=== PATIENT | female | born 1980 | race Two or more races ===

== ENCOUNTER 2025-02-27 07:49 | Emergency (ER) | payer OTHER ==
[~2025-02-27] VITALS: Ht 165.1 cm; Wt 84.2 kg
--- NOTE | 2025-02-27 08:48 | ED.PDOC ---
GI ASSESSMENT HPI Comments 84-year-old female with past medical history of anemia presents to the emergency department with chief complaint of abdominal pain. Patient states, she has been experiencing epigastric abdominal pain x1 day with associated symptoms of nausea vomiting and diarrhea. Patient reports, pain to be stabbing in nature that radiates to her lower back. Patient comments, to have had a gastric bypass [id number] ago; endorses symptoms are similar to when she would over eat. Patient denies fever, chills, sweats, or body aches. No other symptoms or modifying factors present at this time. Chief Complaint: Abdominal Pain Time Seen by MD: 08:34 Primary Care Provider: UNKNOWN Reviewed Notes: Nurses Notes, Medications, Allergies Allergies: Uncoded Allergies: ANESTHESIA (Adverse Reaction, Unknown, 02/27/25) Information Source: Patient Mode of Arrival: Ambulatory Timing: Days Duration: Since onset Prehospital treatment: None Quality: Sharp Vomitus: Watery Stool: Watery Severity: Moderate Recent: None Recent Hx of: None Pain Location: Epigastric Modifying Factors: Nothing Associated sign and symptoms: Nausea, Vomiting, Diarrhea, Abdominal Pain Past Medical History PAST MEDICAL HISTORY: Anemia Surgical History (Other): Gastric bypass DEFENSE ANALYST History: Denies all DEFENSE ANALYST Hx Family History Family History: Unknown Social History Smoker: Non-Smoker Alcohol: Denies ETOH Use Drugs: Denies Drug Use Lives In: Home Gastrointestinal: reports: abdominal pain, diarrhea, nausea, vomiting All Other Systems: Reviewed and Negative (as per hpi) Physical Exam General Appearance: No Apparent Distress, Normal HEENT: Normal ENT Inspection, Pharynx Normal Neck: Full Range of Motion, Non-Tender, Normal, Normal Inspection Respiratory: Chest Non-Tender, Lungs Clear, No Accessory Muscle Use, No Respiratory Distress, Normal Breath Sounds Cardiovascular: No Edema, No Murmur, No Gallop, Normal Peripheral Pulses, Regular Rate/Rhythm Breast Exam: Deferred Gastrointestinal: No Organomegaly, No Pulsatile Mass, Normal Bowel Sounds, Tenderness (epigastric) Genitalia: Deferred Pelvic: Deferred Rectal: Deferred Extremities: No calf tenderness, Normal capillary refill, Normal inspection, Normal range of motion, Non-tender, No pedal edema Musculoskeletal : Apperance: Normal Neurologic: Alert, finance associate II-XII nml as Tested, No Motor Deficits, Normal Affect, Normal Mood, No Sensory Deficits Cerebellar Function: Normal Reflexes: Normal Skin: Dry, Normal Color, Warm Lymphatic: No Adenopathy Was a procedure done? Was a procedure done?: No GI differential Dx Differential Diagnosis: Gastritis/PUD, Gastroenteritis, Electrolyte Imbalance, Food Poisoning, Bacterial, Viral X-Ray, Labs, Meds, VS Vital Signs Date Time Temp Pulse Resp B/P (MAP) Pulse Ox O2 Delivery O2 Flow Rate FiO2 02/27/25 09:34 98.0 63 16 111/56 (74) 100 98.0 02/27/25 09:34 63 16 100 Room Air 02/27/25 08:28 97.4 73 16 100/40 (60) 100 97.4 Lab Test 02/27/25 08:50 Range/Units White Blood Count 4.3 L 4.4-10.8 10^3/uL Red Blood Count 4.93 4.0-5.20 10^6/uL Hemoglobin 10.7 L 12.2-16.2 g/dL Hematocrit 34.0 L 36.0-46.0 % Mean Corpuscular Volume 68.8 L 80.0-100.0 fL Mean Corpuscular Hemoglobin 21.7 L 28.0-32.0 pg Mean Corpuscular Hemoglobin Concent 31.5 L 32.0-36.0 g/dL Red Cell Distribution Width 19.6 H 11.8-14.3 % Platelet Count 278 140-450 10^3/uL Mean Platelet Volume 7.5 6.9-10.8 fL Neutrophils (%) (Auto) 67.4 37.0-80.0 % Lymphocytes (%) (Auto) 25.8 10.0-50.0 % Monocytes (%) (Auto) 5.8 0.0-12.0 % Eosinophils (%) (Auto) 0.8 0.0-7.0 % Basophils (%) (Auto) 0.2 0.0-2.0 % Neutrophils # (Auto) 2.9 1.6-8.6 10 ^3/uL Lymphocytes # (Auto) 1.1 0.4-5.4 10 ^3/uL Monocytes # (Auto) 0.3 0-1.3 10 ^3/uL Eosinophils # (Auto) 0 0-0.8 10 ^3/uL Basophils # (Auto) 0 0-0.2 10 ^3/uL Nucleated Red Blood Cells 0.1 % Urine Color Yellow Yellow Urine Clarity Turbid H Clear Urine pH 5.5 5.0-9.0 Urine Specific [place] 1.025 1.001-1.035 Urine Protein Negative Negative Urine Ketones Negative Negative Urine Blood 2+ H Negative /uL Urine Nitrite 2+ H Negative Urine Bilirubin Negative Negative Urine Urobilinogen Normal Negative mg/dL Urine Leukocyte Esterase Negative Negative /uL Urine RBC 1 0 - 4 /hpf Urine Microscopic WBC 4 0-5 /HPF Urine Squamous Epithelial Cells Mod <5 /hpf Urine Bacteria Few H None Seen /hpf Urine Mucus Moderate None Seen Urine Glucose Normal Normal mg/dL Sodium Level 142 136-145 mmol/L Potassium Level 3.5 3.5-5.1 mmol/L Chloride Level 108 H 98-107 mmol/L Carbon Dioxide Level 27 20-31 mmol/L Anion Gap 7 5-15 Blood Urea Nitrogen 7 L 9-23 mg/dL Creatinine 0.63 0.550-1.02 mg/dL Glomerular Filtration Rate Calc 114 >90 mL/min BUN/Creatinine Ratio 11.1 10.0-20.0 Serum Glucose 88 74-106 mg/dL Calcium Level 8.7 8.7-10.4 mg/dL Total Bilirubin 0.9 0.2-1.0 mg/dL Aspartate Amino Transferase (AST) 20 13-40 U/L Alanine Aminotransferase (ALT) 26 7-40 U/L Alkaline Phosphatase 88 46-116 U/L Total Protein 6.2 5.7-8.2 g/dL Albumin 4.3 3.2-4.8 g/dL Lipase 43 12-53 U/L [place] [address] Ph: [phone] DIAGNOSTIC IMAGING Diagnostic Imaging Report : [id number] Signed PATIENT: ABY BARFIELD ACCT: [id number] UNIT: [id number] : 1980 LOC: ER ROOM / BED: / AGE / SEX: 44 / F ADM STATUS: REG ER SERVICE [id number] ORDERING PHYSICIAN: ANITRA MORFIN MD PROCEDURE(s): GBUS - GALLBLADDER REASON: ro ariel ORDER NUMBER(s): [id number], ACCESSION NUMBER(s): [id number] INDICATION: ro ariel TECHNIQUE: Multiple real-time sonographic images were obtained of the right upper quadrant. COMPARISON: None FINDINGS: The liver demonstrates heterogenous echotexture without focal mass lesions. The liver measures 15 cm. There is no intrahepatic or extrahepatic ductal dilatation. The common duct measures 0.4 mm. Trace ascites The gallbladder is without evidence of stone or sludge. The gallbladder wall measures 0.2mm and is within normal limits. The right kidney measures 10 cm. The right kidney is normal in contour, size, and shape. The echogenicity is normal. There is no hydronephrosis. The pancreas is not well visualized due to overlying bowel gas. IMPRESSION: No sonographic evidence of gallstones or acute cholecystitis. Hepatic steatosis. Trace ascites. ATED BY: DONELL ERVIN MD DICTATED DATE/TIME: 02/27/25936 SIGNED BY: DONELL ERVIN MD SIGNED DATE/TIME: 02/27/25936 CC: 44-YEAR-OLD FEMALE PRESENTS HERE WITH EPIGASTRIC PAIN WITH RADIATION TO THE BACK. I CONSIDERED POSSIBLE CHOLECYSTITIS, BILIARY COLIC, PANCREATITIS. HOWEVER ULTRASOUND OF THE GALLBLADDER IS WITHIN NORMAL LIMITS FOR THE GALLBLADDER. IT DOES HOWEVER DEMONSTRATE HEPATIC STEATOSIS WITH TRACE ASCITES. THE EXACT CAUSE OF THIS IS UNCLEAR BUT I SUSPECT LIKELY RELATED TO ALCOHOL. PATIENT STATES SHE HAS BEEN DRINKING VERY HEAVILY FOR THE LAST SEVERAL MONTHS. HER LIPASE IS WITHIN NORMAL LIMITS TODAY. ADDITIONALLY HOWEVER URINE DOES DEMONSTRATE A POSITIVE UTI WITH BLOOD AND NITRITES. PATIENT DECLINES DYSURIA. HOWEVER GIVEN THAT IT IS POSITIVE FOR NITRITES ALSO I WILL BE DISCHARGING HOME WITH ANTIBIOTICS. ADVISED TO RETURN BACK TO THE ER IF SYMPTOMS WORSEN OR PERSIST. I HAVE GIVEN HER A COPY OF HER ULTRASOUND REPORT TO TAKE TO HER PCP WHICH SHE DOES HAVE IN [place]. ADVISED HER TO STOP DRINKING. PATIENT RETURN BACK TO ER IF SYMPTOMS WORSEN OR PERSIST Time of 1ST Reevaluation: 10:34 Reevaluation 1ST: Unchanged Patient Education/Counseling: Diagnosis, Treatment Family Education/Counseling: No Family Present Departure 1 Departure Time of Disposition: 10:36 Impression: Primary Impression: Urinary tract infection Qualified Codes: N30.01 - Acute cystitis with hematuria Additional Impressions: Hepatic steatosis Ascites Qualified Codes: K70.31 - Alcoholic cirrhosis of liver with ascites Disposition: HOME / SELF CARE / HOMELESS Condition: Stable Additional Instructions: FOLLOW UP WITH THE PRIMARY CARE PHYSICIAN IN 2-3 DAYS. RETURN TO THE ED IF SYMPTOMS WORSEN OR PERSIST. I HAVE INCLUDED THE ULTRASOUND RESULTS HERE TODAY. PLEASE FOLLOW UP WITH THE PRIMARY CARE PHYSICIAN REGARDING THE RESULTS BELOW. [address] [address] Ph: [phone] DIAGNOSTIC IMAGING Diagnostic Imaging Report : [id number] Signed PATIENT: ABY BARFIELD ACCT: [id number] UNIT: [id number] : 1980 LOC: ER ROOM / BED: / AGE / SEX: 44 / F ADM STATUS: REG ER SERVICE 08 ORDERING PHYSICIAN: ANITRA MORFIN MD PROCEDURE(s): GBUS - GALLBLADDER REASON: ro ariel ORDER NUMBER(s): [id number], ACCESSION NUMBER(s): [id number] INDICATION: ro ariel TECHNIQUE: Multiple real-time sonographic images were obtained of the right upper quadrant. COMPARISON: None FINDINGS: The liver demonstrates heterogenous echotexture without focal mass lesions. The liver measures 15 cm. There is no intrahepatic or extrahepatic ductal dilatation. The common duct measures 0.4 mm. Trace ascites The gallbladder is without evidence of stone or sludge. The gallbladder wall measures 0.2mm and is within normal limits. The right kidney measures 10 cm. The right kidney is normal in contour, size, and shape. The echogenicity is normal. There is no hydronephrosis. The pancreas is not well visualized due to overlying bowel gas. IMPRESSION: No sonographic evidence of gallstones or acute cholecystitis. Hepatic steatosis. Trace ascites. ATED BY: DONELL ERVIN MD DICTATED DATE/TIME: 02/27/25936 SIGNED BY: DONELL ERVIN MD SIGNED DATE/TIME: 02/27/25936 CC: e-Prescriptions Cephalexin (KEFLEX CAPSULE) 250 Mg Cp 500 MG PO Q12HR PRN for 10 Days, #20 CAP Prov: ANITRA MORFIN MD 02/27/25 Discharged With: Self Critical Care Note Critical Care Time?: No Stability Stability form required: No Heart Score Heart Score: Heart Score Response (Comments) Value History N/A 0 EKG N/A 0 Age N/A 0 Risk Factors N/A 0 Troponin N/A 0 Total 0 I personally scribed for ANITRA MORFIN MD ([email or web address]) on 02/27/25 at 10:01. Electronically submitted by Tania Hernandez ([email or web address]). I personally scribed for ANITRA MORFIN MD ([email or web address]) on 02/27/25 at 10:29. Electronically submitted by Tania Hernandez ([email or web address]). I personally scribed for ANITRA MORFIN MD ([email or web address]) on 02/27/25 at 10:35. Electronically submitted by Tania Hernandez ([employer]). ANITRA MORFIN MD Feb 27, 2025 08:48
[2025-02-27 09:02] LABS: Basophils # (auto) 0 10 ^3/uL (0-0.2); Basophils % (auto) 0.2 % (0.0-2.0); Eosinophils # (auto) 0 10 ^3/uL (0-0.8); Monocytes # (auto) 0.3 10 ^3/uL (0-1.3); Neutrophils # (auto) 2.9 10 ^3/uL (1.6-8.6); Red Blood Cells 4.93 10^6/uL (4.0-5.20)
[2025-02-27 09:03] LABS: Eosinophils % (auto) 0.8 % (0.0-7.0); Hemoglobin 10.7 g/dL (12.2-16.2); Lymphocytes # (auto) 1.1 10 ^3/uL (0.4-5.4); Lymphocytes % (auto) 25.8 % (10.0-50.0); Mean Corpuscular Hemoglobin 21.7 pg (28.0-32.0); Mean Corpuscular Hgb Conc. 31.5 g/dL (32.0-36.0); Mean Corpuscular Volume 68.8 fL (80.0-100.0); Monocytes % (auto) 5.8 % (0.0-12.0); Neutrophils % (auto) 67.4 % (37.0-80.0); Nucleated Red Blood Cells % 0.1 %; Platelet Count (auto) 278 10^3/uL (140-450); Red Cell Distribution Width 19.6 % (11.8-14.3); White Blood Cell 4.3 10^3/uL (4.4-10.8)
[2025-02-27 09:05] LABS: Urine Bacteria FEW /hpf (None Seen); Urine Blood 2+ /uL (Negative); Urine Clarity Turbid (Clear); Urine Color Yellow (Yellow); Urine Mucus MODERATE (None Seen); Urine Protein, UAD Negative (Negative); Urine Specific Gravity 1.025 (1.001-1.035); Urine Squamous Epithelial Cell MOD /hpf (<5); Urine Urobilinogen Normal (Negative); Urine WBC 4 /HPF (0-5); Urine pH 5.5 (5.0-9.0)
[2025-02-27 09:19] LABS: Alanine Aminotransferase 26 U/L (7-40); Albumin 4.3 g/dL (3.2-4.8); Alkaline Phosphatase 88 U/L (46-116); Anion Gap 7 (5-15); Aspartate Aminotransferase 20 U/L (13-40); BUN/Creatinine Ratio 11.1 (10.0-20.0); Calcium 8.7 mg/dL (8.7-10.4); Carbon Dioxide 27 mmol/L (20-31); Glucose 88 mg/dL (74-106); Lipase 43 U/L (12-53); Potassium 3.5 mmol/L (3.5-5.1); Sodium 142 mmol/L (136-145); Total Protein 6.2 g/dL (5.7-8.2)
[2025-02-27 09:20] LABS: Bilirubin, Total 0.9 mg/dL (0.2-1.0); Blood Urea Nitrogen 7 mg/dL (9-23); Chloride 108 mmol/L (98-107)
--- NOTE | 2025-02-27 09:39 | DVH ---
INDICATION: ro ariel TECHNIQUE: Multiple real-time sonographic images were obtained of the right upper quadrant. COMPARISON: None FINDINGS: The liver demonstrates heterogenous echotexture without focal mass lesions. The liver measu res 15 cm. There is no intrahepatic or extrahepatic ductal dilatation. The common duct measures 0. 4 mm. Trace ascites The gallbladder is without evidence of stone or sludge. The gallbladder wall measures 0.2mm and is within normal limits. The right kidney measures 10 cm. The right kidney is normal in contour, size, and shape. The echog enicity is normal. There is no hydronephrosis. The pancreas is not well visualized due to overlying bowel gas. IMPRESSION: No sonographic evidence of gallstones or acute cholecystitis. Hepatic steatosis. Trace ascites.
[2025-02-27] MEDS: MAALOX PLUS or MAALOX 30 ML PO ONE (10:05)
[2025-02-27] MEDS: DONNATAL 5ml ORAL Elix (BELLADONNA ALK-PHENOBARB) PO ONE (10:05)
[2025-02-27] MEDS: LIDOCAINE VISCOUS 2% 15ML UD PO ONE (10:05)
[2025-02-27] MEDS ORDERED: CEPH250C PO (10:39)
[2025-02-27 10:51] VITALS: BP 117/66; PULSE 64; RESP 16; TEMP 98.1; O2SAT 100
== END 2025-02-27 10:55 | disposition home or self-care (01) ==
LOC: ER 07:49
DX: N39.0 Urinary tract infection, site not specified (principal); R18.8 Other ascites; K76.0 Fatty (change of) liver, not elsewhere classified; Z88.4 Allergy status to anesthetic agent; Z98.84 Bariatric surgery status
CPT/HCPCS: 36415; 76705; 80053; 81001; 83690; 85025